=== PATIENT | male | born 1985 | race African-American/Black ===

== ENCOUNTER 2016-07-27 15:26 | Emergency (ER) | payer OTHER ==
--- NOTE | 2016-07-27 15:59 | ED Physician Documentation ---
Chest Pain - HISTORIAN Historian: patient - HPI Stated Complaint: Chest Pain Chief Complaint: Chest Pain Additional Information: Chest pain x 4 weeks, worse with exercise, thinks he hurt his chest by running too much, comes and goes. Reproducible with deep inspiration and with deep palpation of area. No other related symptoms Onset: days ago Timing: gradual onset Duration: waxing, waning Last known Well Date: 06/25/16 Last Known Well Time: 17:14 Last known Well Code/Unknown Code: Unknown Context: exertion Severity: moderate Quality: aching Chest Pain Radiation: back Chest Pain Signs/Symptoms: denies: nausea, vomiting, diaphoresis, dizziness, dyspnea, tachypnea, tachycardia, palpitations Worsened By: deep breaths, exertion, movement Relieved By: nothing Further Comments: no - ROS CONST: none MS/LYMPH: none GI/: none EYES/ENT: none SKIN/ENDO: none NEURO/PSYCH: none - PAST HX NM risk factors: no pertinent history. denies: hypertension DVT/PE Risk Factors: none TAD/AAA risk factors: none Neuro deficit: none GI disease: none Lung disease: none Surgeries/Procedures: other (ortho) Immunizations: UTD Allergies/Adverse Reactions: Allergies Allergy/AdvReac Type Severity Reaction Status Date / Time No Known Allergies Allergy Verified 07/27/16 15:42 Home Medications: Ambulatory Orders Medication Instructions Recorded Dextroamphetamine/Amphetamine 10 mg PO DAILY 07/27/16 [Adderall 10 mg Tablet] - SOCIAL HX Smoking History: non-smoker Alcohol Use: none Drug Use: none - FAMILY HX Family HX: none - VITAL SIGNS Vital Signs: Vital Signs Temp Pulse Resp BP Pulse Ox 97 F L 68 18 144/89 99 07/27/16 15:30 07/27/16 15:30 07/27/16 15:30 07/27/16 15:30 07/27/16 15:30 - REVIEWED ASSESSMENTS Nursing Assessment Reviewed: Yes Vitals Reviewed: Yes ED Results Lab/Radiology - Lab Results Lab Results: all labs neg. will repeat ECG, I don't agree with computer interpretation. repaet ECG NSR - Orders Orders: ED Orders Category Date Time Status Continuous EKG monitoring Q30M Care 07/27/16 15:55 Ordered Continuous Pulse Oximetry Q30M Care 07/27/16 15:[address] Saline Lock/IV NOW Care 07/27/16 15:55 Ordered CHEST 1 VIEW [RAD] Stat Exams 07/27/16 15:55 Ordered BNP [NT-proBNP] Stat Lab 07/27/16 Ordered CBC/PLATELET/DIFF Routine Lab 07/27/16 15:55 Ordered CKMB Stat Lab 07/27/16 Ordered CMP Routine Lab 07/27/16 15:55 Ordered CREATINE KINASE Routine Lab 07/27/16 15:55 Ordered D DIMER Stat Lab 07/27/16 Ordered TROPONIN I (cTnI) Stat Lab 07/27/16 15:55 Ordered Oxygen Daily Oxygen 07/27/16 16:00 Ordered EKG WITH COMPARISON Stat Ther 07/27/16 15:55 Ordered Chest Pain Physical Exam - EXAM General Appearance: no acute distress, alert EENT: eye inspection normal, ENT inspection normal, pharynx normal, no signs of dehydration Neck: nml inspection, no carotid bruit. No: JVD present Respiratory: no resp. distress, manifests distinct pain on movement. No: decreased air movement CVS: reg. rate & rhythm, no murmur, no friction rub, pulses equal Abdomen: soft, no distension Skin: warm/dry, normal color Extremities: non-tender, normal range of motion, no evidence of injury, no edema Neuro: oriented X3, mood/affect nml Discharge Clincal Impression: Costochondritis Home Medications: Ambulatory Orders Dextroamphetamine/Amphetamine [Adderall 10 mg Tablet] 10 mg PO DAILY 07/27/16 Condition: Good Disposition: 01 HOME, SELF-CARE Decision to Admit: NO Date of Decison to Admit: 07/27/16 Decision Time: 17:14
[2016-07-27 16:28] LABS: BASOPHILS % 0.7 (0.0-1.5); EOSINOPHILS % 1.7 % (0.0-6.8); LYMPHOCYTES # 2.4 # k/uL (0.6-4.0); MEAN CORPUSCULAR HEMOGLOBIN 29.5 pg (28.0-34.0); MONOCYTES # 0.3 # k/uL (0.0-0.9); MONOCYTES % 5.9 % (0.0-11.0); NEUTROPHILS # 2.5 # k/uL (1.4-7.7)
[2016-07-27 16:38] LABS: eGFR (African) > 60; eGFR (Non-African) > 60
[2016-07-27] MEDS ORDERED: KETOROLAC TROMETHAMINE 60 MG/2 ML VIAL IM ONE (17:16)
[2016-07-27 17:31] VITALS: BP 110/62
--- NOTE | 2016-07-28 06:00 | Diagnostic Imaging Report ---
Report Submission Date: Jul 27, 2016 4:21:59 PM CDT Patient ~ Study Name: MICHELLE JAEGER ~ Date: Jul 27, 2016 4:05:16 PM CDT ~ Modality Type: CR Gender: M ~ Description: CHEST : 85 ~ Institution: [facility] Physician: AYLA LITTLEJOHN ~ ~ ~ ~ And chest AP portable at 16:05 hours of July . Clinical history: Chest pain Normal heart shadow and mediastinum. Clear lungs without acute infiltrate or pleural effusion. Normal bony thorax. Impression: Normal chest ~ Electronically signed on Jul 27, 2016 4:21:59 PM CDT by: Wenceslao LOUIS
== END 2016-07-27 17:28 | disposition home or self-care (01) ==
LOC: ED 15:26
DX: M94.0 Chondrocostal junction syndrome [Tietze] (principal)
CPT/HCPCS: 71010; 80053; 82550; 82553; 83880; 84484; 85025; 85379; 99283; J1885; S1016

== ENCOUNTER 2016-08-12 16:22 | Outpatient (CLI) | payer OTHER | END 2016-08-12 16:23 | LOC: LAB 16:22 | PROVIDERS: ATTEND Family Medicine | DX: G60.9 Hereditary and idiopathic neuropathy, unspecified (principal) | CPT/HCPCS: 36415; 83655 ==

== ENCOUNTER 2017-04-24 17:45 | Emergency (ER) | payer OTHER ==
--- NOTE | 2017-04-24 17:48 | ED Physician Documentation ---
General Adult - HISTORIAN Historian: patient - HPI Stated Complaint: stepped on nail about one hour ago is not sure if the whole nail came out Chief Complaint: General Adult Onset: hours (1) Timing: still present Severity: mild Further Comments: yes (stepped on a nail about one hour ago. He is not sure that he "got it all out" . He has mild pain. He does need a tetnaus shot) - ROS CONST: no problems MS/SKIN/LYMPH: other (puncture wound on left foot ) - PAST HX Past History: none Immunizations: tetanus Allergies/Adverse Reactions: Allergies Allergy/AdvReac Type Severity Reaction Status Date / Time No Known Allergies Allergy Verified 04/24/17 18:46 Home Medications: Ambulatory Orders Medication Instructions Recorded NK [NK] 04/24/17 - SOCIAL HX Smoking History: non-smoker Alcohol Use: none Drug Use: none - FAMILY HX Family History: No - VITAL SIGNS Vital Signs: Vital Signs Temp Pulse Resp BP Pulse Ox 110/62 07/27/16 17:30 - REVIEWED ASSESSMENTS Nursing Assessment Reviewed: Yes Vitals Reviewed: Yes ED Results Lab/Radiology - Radiology Radiology Impressions: Left foot 3 views Clinical history pain foreign body Technique AP lateral oblique Findings: There is no fracture , lytic change or foreign body. Impression: Negative left foot Electronically signed on Apr 24, 2017 6:59:43 PM SOAKER by: Sunday Pierce General Adult Physical Exam - PHYSICAL EXAM GENERAL APPEARANCE: no distress RESPIRATORY: no resp distress, chest non-tender, breath sounds normal CVS: reg rate & rhythm, heart sounds normal, equal pulses ABDOMEN: soft SKIN: warm/dry, normal color, other (small puncture wound on left foot no redness ) EXTREMITIES: other (pulse + ) NEURO: oriented X3, CN's nml as tested Discharge Clincal Impression: Nail wound of left foot Qualifiers: Encounter type: initial encounter Qualified Code(s): S91.332A - Puncture wound without foreign body, left foot, initial encounter Referrals: Wenceslao Jiang MD [STAFF PHYSICIAN] - 2 Days Additional Instructions: Keep area clean and dry Return to ER or PCP for any swelling in foot or redness or fever Condition: Stable Disposition: 01 HOME, SELF-CARE Decision to Admit: NO Date of Decison to Admit: 04/24/17 Decision Time: 19:08
[2017-04-24] MEDS ORDERED: DIPH,PERTUSS(ACELL),TET VAC/PF 0.5 ML DISP.SYRIN IM ONE (18:25)
[2017-04-24 18:30] VITALS: BP 141/86
--- NOTE | 2017-04-24 19:44 | Diagnostic Imaging Report ---
CHANELL SPRINGER [facility] [id number] [facility] [address] [id number] Report Submission Date: Apr 24, 2017 6:59:43 PM ADOLESCENT COORDINATOR Patient Study Name: MICHELLE JAEGER Date: Apr 24, 2017 6:37:06 PM ADOLESCENT COORDINATOR Modality Type: CR Gender: M Description: LOWER EXTREMITY : 85 Institution: [facility] Physician: CHANELL SPRINGER Left foot 3 views Clinical history pain foreign body Technique AP lateral oblique Findings: There is no fracture , lytic change or foreign body. Impression: Negative left foot Electronically signed on Apr 24, 2017 6:59:43 PM ADOLESCENT COORDINATOR by: Sunday LOUIS
== END 2017-04-24 19:20 | disposition home or self-care (01) ==
LOC: ED 17:45
DX: S91.332A Puncture wound without foreign body, left foot, initial encounter (principal); X58.XXXA Exposure to other specified factors, initial encounter; Y93.9 Activity, unspecified; Y99.9 Unspecified external cause status
CPT/HCPCS: 73630; 90471; 90715; 99283

== ENCOUNTER 2017-07-22 10:14 | Outpatient (CLI) | payer OTHER ==
[2017-07-22 10:30] LABS: BASOPHILS % 0.7 (0.0-1.5); EOSINOPHILS % 2.6 % (0.0-6.8); MEAN CORPUSCULAR HEMOGLOBIN 29.7 pg (28.0-34.0); MEAN CORPUSCULAR VOLUME 87.7 fl (80.0-100.0); MONOCYTES % 5.1 % (0.0-11.0); NEUTROPHILS # 3.5 # k/uL (1.4-7.7)
[2017-07-22 11:17] LABS: eGFR (African) > 60; eGFR (Non-African) > 60
== END 2017-07-22 10:15 ==
LOC: LAB 10:14
PROVIDERS: ATTEND Physician Assistant
DX: R10.9 Unspecified abdominal pain (principal); R53.83 Other fatigue
CPT/HCPCS: 36415; 80053; 82607; 82652; 84439; 84443; 84481; 85025